=== PATIENT | male | born 1990 | race Two or more races ===

== ENCOUNTER 2017-05-06 16:44 | Emergency (ER) | payer SELFPAY ==
[~2017-05-06] VITALS: Ht 170.2 cm; Wt 63.5 kg
[2017-05-06 16:50] VITALS: BP 118/67
--- NOTE | 2017-05-06 17:06 | PHYS DOC ---
Past Medical History Past Medical History: No Pertinent History Past Surgical History: Other Additional Past Surgical Histo: R ANKLE FX Alcohol Use: Occasionally Drug Use: None Adult General Chief Complaint Chief Complaint: RIB PAIN HPI HPI Patient is a 27 year old male presents to the emergency department with a history of playing football Saturday when someone landed on his left ribs. Patient states he has increase pain with deep breathing. Denies SOA. Denies talking any medication for the pain. Review of Systems Review of Systems Constitutional: Denies fever or chills [] Eyes: Denies change in visual acuity, redness, or eye pain [] HENT: Denies nasal congestion or sore throat [] Respiratory: Denies cough or shortness of breath [] Cardiovascular: No additional information not addressed in HPI [] Musculoskeletal: Denies back pain or joint pain [] Integument: Denies rash or skin lesions [] Neurologic: Denies headache, focal weakness or sensory changes [] Allergies Allergies Allergies Coded Allergies Type Severity Reaction Last Updated Verified No Known Drug Allergies 05/06/17 No Physical Exam Physical Exam Constitutional: Well developed, well nourished, no acute distress, non-toxic appearance. [] HENT: Normocephalic, atraumatic, bilateral external ears normal, oropharynx moist, no oral exudates, nose normal. [] Eyes: PERRLA, EOMI, conjunctiva normal, no discharge. [] Neck: Normal range of motion, no tenderness, supple, no stridor. [] Cardiovascular:Heart rate regular rhythm, no murmur [] Lungs & Thorax: Bilateral breath sounds clear to auscultation. No crepitus, no deformity no bruising noted. Skin: Warm, dry, no erythema, no rash. [] Back: No tenderness[] Extremities: No tenderness, no cyanosis, no clubbing, ROM intact, no edema. [] Neurologic: Alert and oriented X 3, normal motor function, normal sensory function, no focal deficits noted. [] Psychologic: Affect normal, judgement normal, mood normal. [] Current Patient Data Vital Signs Vital Signs Date Time Temp Pulse Resp B/P (MAP) Pulse Ox O2 Delivery O2 Flow Rate FiO2 05/06/17 16:50 97.7 56 16 98 Room Air 97.7 EKG EKG [] Radiology/Procedures Radiology/Procedures [] Course & Med Decision Making Course & Med Decision Making Pertinent Labs and Imaging studies reviewed. (See chart for details) X-ray positive for rib fracture per Dr Chua. Patient will be provided with tylenol #3 for pain and discomfort. Recommend IS to prevent pneumonia. Patient will be encouraged to use the IS every 3-4 hours. Patient was provided with signs and symptoms to return to the emergency department. Patient agree with discharge instructions, treatment regimen and followup recommendations. [] Dragon Disclaimer Dragon Disclaimer This electronic medical record was generated, in whole or in part, using a voice recognition dictation system. Departure Departure Impression: Primary Impression: Fracture of rib of left side Disposition: HOME, SELF-CARE Condition: STABLE Referrals: NO PCP (PCP) Patient Instructions: Rib Fracture, [id number] Additional Instructions: Activity as tolerated Medication as prescribed Tylenol #3 may cause drowsiness do not take if you need to be alert and oriented. This medication may also cause constipation drink plenty of water and plenty of fruits and vegetables. Ibuprofen 800 mg every 8 hours for pain and discomfort. Take this medication with food as it may cause upset stomach. Stop taking if upset stomach occurs. Cool pack to the area on 20 minutes and off 20 minutes several times a day Followup with your primary care provider in 5-7 days Return to the emergency department as needed for signs and symptoms that become worse. Scripts Acetaminophen With Codeine (TYLENOL WITH CODEINE #3 TABLET) 1 Each Tablet 1 TAB PO PRN Q6HRS Y for PAIN, #20 TAB Prov: PATTI ROQUE APRN 05/06/17 PATTI ROQUE APRN May 06, 2017 17:06
[2017-05-06] MEDS ORDERED: ACET-704 PO (17:34)
--- NOTE | 2017-05-07 08:31 | RAD ---
Examination: PA view the chest with left RIBS History: History of left rib pain after playing football Comparison: None available Findings: The cardiomediastinal silhouette grossly appears unremarkable. There is no acute infiltrate or visualize pneumothorax. No evidence of displaced left rib fracture identified. Impression: 1. No acute cardiopulmonary findings. 2. No evidence of displaced left rib fracture.
== END 2017-05-06 17:47 | disposition home or self-care (01) ==
LOC: ER 16:44
DX: S22.32XA Fracture of one rib, left side, initial encounter for closed fracture (principal); W51.XXXA Accidental striking against or bumped into by another person, initial encounter; Y93.61 Activity, american tackle football; Y92.89 Other specified places as the place of occurrence of the external cause; Y99.8 Other external cause status
CPT/HCPCS: 71101; 99284-25

== ENCOUNTER 2022-04-11 12:56 | Emergency (ER) | payer SELFPAY ==
[~2022-04-11] VITALS: Ht 170.2 cm; Wt 70.0 kg
[~2022-04-11 12:56] MED LIST: ACET-704 PO
[2022-04-11 13:10] VITALS: BP 136/82
--- NOTE | 2022-04-11 13:58 | PHYS DOC ---
Past Medical History Past Medical History: No Pertinent History Additional Past Medical Histor: drug abuse (IRVING JETER Stacy ACCIDENT EXAMINER) Past Surgical History: Other Additional Past Surgical Histo: R ANKLE FX (IRVING JETER Stacy ACCIDENT EXAMINER) Smoking Status: Current Every Day Smoker Alcohol Use: Occasionally Drug Use: None Social History Narrative: fentanyl, no IV drug use, pt reports smoking meth and fentanyl. (IRVING JETER Stacy ACCIDENT EXAMINER) General Adult EDM: Chief Complaint: WRIST PAIN HPI: HPI: Patient is a 32 year old male with current use of methamphetamine and street fentanyl last use yesterday presented to the ED today stating he cannot extend his left wrist yesterday. Patient denies any injuries. Denies any numbness or tingling to the left upper extremity or any other extremity. Denies any headache, dizziness, chest pain, numbness or tingling to the affected wrist. Denies any pain. (IRVING JETER Stacy ACCIDENT EXAMINER) Review of Systems: Review of Systems: Constitutional: Denies fever or chills. [] Musculoskeletal: Reports difficulty extending the left wrist Integument: Denies rash. [] Neurologic: Denies headache, focal weakness or sensory changes. [] ] Psychiatric: Denies depression or anxiety. [] (REXIRVING Villanueva ACCIDENT EXAMINER) Heart Score: C/O Chest Pain: N/A Risk Factors: Risk Factors: DM, Current or recent (<one month) smoker, HTN, HLP, family history of CAD, obesity. Risk Scores: Score 0 - 3: 2.5% MACE over next 6 weeks - Discharge Home Score 4 - 6: 20.3% MACE over next 6 weeks - Admit for Clinical Observation Score 7 - 10: 72.7% MACE over next 6 weeks - Early Invasive Strategies (REXIRVING Villanueva ACCIDENT EXAMINER) Allergies: Allergies: Allergies Coded Allergies Type Severity Reaction Last Updated Verified No Known Drug Allergies 05/06/17 No (REXIRVING Villanueva ACCIDENT EXAMINER) Physical Exam: PE: Constitutional: Well developed, well nourished, no acute distress, non-toxic appearance. [] Skin: Warm, dry, no erythema, no rash. [] Back: No tenderness, no CVA tenderness. [] Extremities: No tenderness, no cyanosis, no clubbing, ROM intact, no edema. Adequate radial, medial, ulnar sensation to the left fingers. +2 left radial pulse. Cap refill less than 2 seconds to left fingers Neurologic: Alert and oriented X 3, normal motor function, normal sensory function, no focal deficits noted. [] Psychologic: Flat affect (IRVING JETER APRN) Current Patient Data: Vital Signs: Vital Signs Date Time Temp Pulse Resp B/P (MAP) Pulse Ox O2 Delivery O2 Flow Rate FiO2 04/11/22 13:10 97.9 101 16 136/82 (100) 96 Room Air 97.9 (IRVING JETER APRN) EKG: EKG: [] (IRVING JETER APRN) Radiology/Procedures: Radiology/Procedures: []PROCEDURE: WRIST 3V LEFT XR LT WRIST 3VIEWS History: Reason: unable to lift it, numbness in first 2 digits / Spl. Instructions: / History: Technique: 3 views left wrist Comparison: None. Findings: No dislocation. No acute fracture. Impression: 1. No acute osseous abnormality. Electronically signed by: Brown Zeng DO (04/11/2022 1:58 PM) [id number] DICTATED and SIGNED BY: BROWN ZENG DO DATE: 04/11/22 1357 (IRVING JETER APRN) Course & Med Decision Making: Course & Med Decision Making Pertinent Labs and Imaging studies reviewed. (See chart for details) This is a 32-year-old male patient presented to the ED today complaining of difficulties extending the left wrist since yesterday. Physical exam is benign, patient has no injuries. Left wrist x-ray is negative. Discharge home. Follow-up with PCP and orthopedic doctor in the course of this week. Recommended patient consider getting help for methamphetamine and fentanyl use, he states he is not ready to get help yet. (IRVING JETER APRN) Dragon Disclaimer: Dragon Disclaimer: This electronic medical record was generated, in whole or in part, using a voice recognition dictation system. (IRVING JETER APRN) Departure Departure Impression: Primary Impression: Wrist symptom Disposition: 01 HOME / SELF CARE / HOMELESS Condition: STABLE Referrals: NO PCP (PCP) PAOLA ARIAS MD follow up in one week Patient Instructions: Wrist Exercises, Generic-SportsMed Additional Instructions: Your left wrist was evaluated in the emergency room. The x-ray of the wrist is negative. Please follow-up with your primary care doctor or the provided orthopedic doctor in 1 week if symptoms continue. Attending Signature I have participated in the care of this patient and I have reviewed and agree with all pertinent clinical information above including history, exam, and recommendations. (KIRAN SHULTZ DO) IRVING JETER APRN April 11, 2022 13:58 KIRAN SHULTZ DO April 11, 2022 14:09
--- NOTE | 2022-04-11 14:01 | RAD ---
XR LT WRIST 3VIEWS History: Reason: unable to lift it, numbness in first 2 digits / Spl. Instructions: / History: Technique: 3 views left wrist Comparison: None. Findings: No dislocation. No acute fracture. Impression: 1. No acute osseous abnormality. Electronically signed by: Brown Zeng DO (04/11/2022 1:58 PM) [id number]
== END 2022-04-11 14:09 | disposition home or self-care (01) ==
LOC: ER 12:56
DX: M25.532 Pain in left wrist (principal); F17.200 Nicotine dependence, unspecified, uncomplicated; F15.90 Other stimulant use, unspecified, uncomplicated
CPT/HCPCS: 73120; 99283